=== PATIENT | male | born 1995 | race African-American/Black ===

== ENCOUNTER 2024-01-18 01:12 | Emergency (ER) | payer BC, SELFPAY ==
--- NOTE | ~2024-01-18 | XR_ITS ---
Portable chest x-ray Comparison: None Clinical History: Shortness of breath Findings: Lungs are clear, without focal consolidation or pleural effusion. Cardiomediastinal silho uette is unremarkable. Bones and soft tissues are unremarkable. Impression: Normal chest. Reviewed, dictated and finalized at location . Impression: Normal chest.
[2024-01-18 01:16] VITALS: BP 139/94; PULSE 114; RESP 22; TEMP 37.2; O2SAT 99
[2024-01-18 01:26] VITALS: PULSE 109
--- NOTE | 2024-01-18 01:26 | ECG_ITS ---
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 Measurements Intervals [place] Rate: 115 P: 61 WV: 144 QRS: 41 QRSD: 102 T: 42 QT: 304 QTc: 422 Interpretive Statements SINUS TACHYCARDIA POSSIBLE LEFT ATRIAL ENLARGEMENT [-0.1mV P WAVE IN V1/V2] INCOMPLETE RIGHT BUNDLE BRANCH BLOCK [90+ ms QRS DURATION, TERMINAL R IN V1/V2, 40+ ms S IN I/aVL/V4/V5/V6] NONSPECIFIC T-WAVE ABNORMALITY ABNORMAL RHYTHM ECG No previous ECG available for comparison Electronically Signed On 01-18-2024 09:10:55 CDT by Dalton Knox M.D.
[2024-01-18 01:27] VITALS: BP 150/113; PULSE 114; RESP 14; O2SAT 98
[2024-01-18 01:29] VITALS: RESP 14; O2SAT 100
[2024-01-18] MEDS: ONDANSETRON INJ 4 MG/2 ML VIAL IV PUSH (01:42)
[2024-01-18] MEDS: SODIUM CHLORIDE 0.9% IV 1,000 ML 999 ML IV CONT ×2 (01:42→02:42)
[2024-01-18 01:43] LABS: Basophils Absolute Auto 0.1 K/mm3 (0.0-0.1); Basophils Percent Auto 1.5 % (0.2-1.2); Eosinophils Percent Auto 0.1 % (0-4.4); Hematocrit 49.8 % (42.0-52.0); Hemoglobin 17.4 g/dL (14.0-18.0); Immature Granulocyte Absolute 0.02 K/mm3 (0.00-0.031); Immature Granulocyte Percent A 0.2 % (0-0.5); Lymphocytes Absolute Auto 4.03 K/mm3 (0.9-3.2); Lymphocytes Percent Auto 42.5 % (18.3-44.2); Mean Corpuscular HGB Conc 34.9 g/dl (32-36); Mean Corpuscular Hemoglobin 29.8 pg (26-34); Mean Corpuscular Volume 85.4 fl (80-100); Mean Platelet Volume 9.1 fl (7.4-10.4); Monocytes Absolute Auto 0.9 K/mm3 (0.1-0.6); Monocytes Percent Auto 9.4 % (2.6-8.5); Neutrophils Absolute Auto 4.4 K/mm3 (1.3-6.7); Neutrophils Percent Auto 46.3 % (45.5-73.1); Platelet Count Result 178 k/mm3 (150-375); Red Blood Count 5.83 M/mm3 (4.6-6.20); White Blood Count 9.5 K/mm3 (4.5-10.0)
[2024-01-18 01:54] LABS: Alanine Aminotransferase 25 U/L (6-50); Albumin Level 4.6 g/dL (3.5-5.1); Alkaline Phosphatase 95 U/L (38-126); Anion Gap 7 mmol/L (4-12); Aspartate Amino Transferase 34 U/L (17-59); Bilirubin,Total 0.9 mg/dL (0.2-1.3); Blood Urea Nitrogen 9 mg/dL (9-20); Carbon Dioxide 31 mmol/L (22-30); Chloride 98 mmol/L (98-107); Estimated CRCL calculation 104 ml/min; Estimated Glomerular Filt Rate > 60; Glucose 124 mg/dL (65-110); Lipase 104 U/L (23-300); Magnesium 2.3 mg/dL (1.6-2.3); Potassium 3.3 mmol/L (3.4-5.0); Sodium 136 mmol/L (137-145)
--- NOTE | 2024-01-18 02:18 | ECG_ITS ---
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 Measurements Intervals [place] Rate: 93 P: 49 ID: 143 QRS: 22 QRSD: 110 T: 19 QT: 337 QTc: 421 Interpretive Statements SINUS RHYTHM INCOMPLETE RIGHT BUNDLE BRANCH BLOCK [90+ ms QRS DURATION, TERMINAL R IN V1/V2, 40+ ms S IN I/aVL/V4/V5/V6] BORDERLINE ECG Compared to ECG 01/18/2024 01:24:15 NO SIGNIFICANT DIFFERENCE Electronically Signed On 01-18-2024 09:11:34 CDT by Dalton Knox M.D.
[2024-01-18 02:40] LABS: Troponin I < 0.012 ng/mL (0.000-0.034)
[2024-01-18 02:46] LABS: Influenza A QL RT-PCR Negative (Negative); Influenza B QL RT-PCR Negative (Negative); RSV RNA, RT-PCR Negative (Negative); SARS-CoV-2 RNA PCR Negative (Negative)
--- NOTE | 2024-01-18 03:22 | ED.GENADULT ---
HPI - General Adult General Chief complaint: Unspecified Stated complaint: dental pain Time Seen by Provider: 01/18/24 03:13 History of Present Illness HPI narrative: Patient is a 28-year-old male who presents to the emergency department this evening complaining of chest pain. Patient states that while he was trying to go sleep he started to have this chest pain and difficulty breathing. Patient states that a few days ago he had oral surgery and had some wisdom teeth removed and mother who is currently present at bedside states that it was very traumatic for him and he did not deal with it well. Since then patient states that he has been feeling sick. The patient admits that he did have 2 episodes of vomiting prior to arrival to the emergency department. Denies any abdominal pain, any diarrhea. Patient admits to fevers although no reported in the emergency department. He denies taking any Tylenol motion prior to arrival. No additional symptoms or concerns at this time. Related Data Allergies Allergy/AdvReac Type Severity Reaction Status Date / Time latex Allergy Anaphylaxis Verified 01/18/24 03:30 Review of Systems Review of Systems: All systems are reviewed and are negative unless stated otherwise in the HPI. Exam Narrative: General: Alert, awake, afebrile, in no acute distress. HEENT: PERRL, no rhinorrhea, no post nasal drip, oropharynx clear. Cardiovascular: Regular rate and rhythm, no murmurs, rubs or gallops, no peripheral edema. Respiratory: Clear to auscultation bilaterally, no tachypnea, no wheezing, no rhonchi, no rubs, no respiratory distress. Abdomen: Soft, nontender, nondistended, no rebound, no guarding, no peritoneal signs. Musculoskeletal: No joint swelling or deformity, normal muscle tone. Skin: No rashes or petechia, no signs of infection. Neurological: Alert and oriented to person, place, and time. Follows all commands. No focal deficits, speech is clear and fluent. Course Vital Signs Vital signs: Vital Signs Temperature 98.9 F 01/18/24 01:16 Pulse Rate 114 H 01/18/24 01:16 Respiratory Rate 22 H 01/18/24 01:16 Blood Pressure 139/94 H 01/18/24 01:16 Pulse Oximetry 99 01/18/24 01:16 Oxygen Delivery Room Air 01/18/24 01:16 Temperature 98.9 F 01/18/24 01:16 Pulse Rate 67 01/18/24 03:32 Respiratory Rate 18 01/18/24 03:32 Blood Pressure 139/76 01/18/24 03:32 Pulse Oximetry 100 01/18/24 03:32 Oxygen Delivery Room Air 01/18/24 01:16 Medical Decision Making MDM Narrative Medical decision making narrative: The patient was evaluated by myself in the emergency department. History is obtained from patient who is an independent historian and physical exam was performed. External medical records were reviewed at this time. IV was established and pertinent tests were ordered. Patient was administered 2 L IV fluid bolus with normal saline. EKG was obtained which revealed sinus tachycardia rate of 115 beats per minute, no ischemic changes within the limitation of the baseline artifact. EKG was independently interpreted by me and is currently pending official cardiology read. Laboratory results obtained revealing no acute process. Imaging studies obtained included CXR which was independently interpreted by me revealing no acute cardiopulmonary process, which is pending final radiology interpretation. Differential diagnosis considerations include acute stress reaction, anxiety, infectious process such as pneumonia, and acute coronary syndrome although unlikely given patient low heart score of 0. Comorbidities impacting this visit include none. I have evaluated and discussed social determinants of health with the patient that could potentially impact subsequent diagnosis and treatment plans. On repeat assessment of the patient, reevaluation revealed that the patient is doing well and is in no acute distress. Patient symptoms have improved since he arrive
[2024-01-18 03:32] VITALS: BP 139/76; PULSE 67; RESP 18; O2SAT 100
== END 2024-01-18 03:33 | disposition home or self-care (01) ==
PROVIDERS: Emergency Provider Emergency Medicine
DX: R07.89 Other chest pain (principal); Z20.822 Contact with and (suspected) exposure to COVID-19
CPT/HCPCS: 36415; 71045; 80053; 83690; 83735; 84484; 85025; 87637; 93005; 96361; 96374; 99284; J2405; J7030